=== PATIENT | female | born 1990 | race Caucasian/White ===

== ENCOUNTER 2024-05-27 12:27 | Emergency (ER) | payer OTHER ==
[~2024-05-27] VITALS: Ht 158.8 cm; Wt 93.0 kg
[~2024-05-27 12:27] MED LIST: CIPRO500 MG OR; DOXYCYCLINE100 MG PO; FLONASE SPRAY50 MCG; HYDROCO/APAP1 TA9 PO; LEVAQUIN500 MG PO; LORTAB 5 OR; NO MEDS; PROMETHAZINE25 M1 RE; ZOFRAN ODT8 MG SL; [UNRECOGNIZED DRUG - OTHER]
[2024-05-27 13:00] VITALS: BP 135/69
[2024-05-27] MEDS ORDERED: cefTRIAXone SODIUM 1 GM/VIAL SDV IM ONE (13:05)
[2024-05-27] MEDS ORDERED: HYDROcodone 5 MG/Acetaminophen 325 MG/COMBO PO ONE (13:05)
[2024-05-27] MEDS ORDERED: KETOROLAC TROMETHAMINE 15 MG/ML SDV IM ONE (13:05)
[2024-05-27] MEDS ORDERED: PENICILLIN V P500 MG PO (13:07)
[2024-05-27 13:35] VITALS: BP 135/69
== END 2024-05-27 13:37 | disposition home or self-care (01) ==
LOC: ED 12:27
DX: K08.89 Other specified disorders of teeth and supporting structures (principal); F17.200 Nicotine dependence, unspecified, uncomplicated